=== PATIENT | female | born 1985 | race African-American/Black ===

== ENCOUNTER 2022-04-19 08:52 | Emergency (ER) | payer OTHER ==
[~2022-04-19] VITALS: Ht 160 cm; Wt 58.2 kg
[2022-04-19 11:45] LABS: BASO # 0.1 10^3/uL (0.0-0.2); BASO % 1.5 % (0.0-1.0); EOS # 0.1 10^3/uL (0.0-0.5); EOS % 3.3 % (0.0-3.0); HEMATOCRIT 32.4 % (36.0-47.0); HEMOGLOBIN 10.9 g/dl (12.0-15.5); LYMPH # 1.3 10^3/uL (1.5-5.0); MEAN CORPUSCULAR HEMOGLOBIN 28.7 pg (27.0-33.0); MEAN CORPUSCULAR HGB CONC 33.6 g/dl (32.0-36.5); MEAN CORPUSCULAR VOLUME 85.3 fl (80.0-96.0); MONO # 0.4 10^3/uL (0.0-0.8); MONO % 10.6 % (2.0-8.0); NEUTROPHILS # 1.5 10^3/uL (1.5-8.5); NEUTROPHILS % 46.6 % (36.0-66.0); PLATELET COUNT, AUTOMATED 169 10^3/uL (150-450); WHITE BLOOD COUNT 3.3 10^3/uL (4.0-10.0)
[2022-04-19] MEDS ORDERED: ACETAMINOPHEN TAB 650MG DOSE (2X325MG) PO ONE (12:10)
[2022-04-19 12:15] LABS: BLOOD UREA NITROGEN 11 MG/DL (9-23); CALCIUM LEVEL 8.7 MG/DL (8.5-10.1); CARBON DIOXIDE LEVEL 24 MMOL/L (20-31); CHLORIDE LEVEL 106 MMOL/L (98-107); CREATININE FOR GFR 0.73 MG/DL (0.55-1.30); GLOMERULAR FILTRATION RATE > 60.0 (>60); GLUCOSE, FASTING 81 MG/DL (60-100); POTASSIUM SERUM 4.6 MMOL/L (3.5-5.1); SODIUM LEVEL 136 MMOL/L (136-145)
[2022-04-19 12:22] LABS: RSV AMPLIFICATION NEGATIVE (NEGATIVE)
[2022-04-19] MEDS ORDERED: NS 1,000 ML IV ONE (13:00)
[2022-04-19 13:03] LABS: ALBUMIN 4.1 G/DL (3.2-5.2); ALKALINE PHOSPHATASE 59 U/L (46-116); ALT/SGPT 12 U/L (7.0-40); AST/SGOT 48 U/L (<34); BILIRUBIN,DIRECT 0.2 MG/DL (<0.4); BILIRUBIN,TOTAL 1.2 MG/DL (0.3-1.2); TOTAL PROTEIN 7.8 G/DL (5.7-8.2)
[2022-04-19 14:35] VITALS: BP 140/95
== END 2022-04-19 14:35 | disposition home or self-care (01) ==
LOC: M ED 08:52
DX: R42 Dizziness and giddiness (principal); D64.9 Anemia, unspecified; E86.0 Dehydration; R51.9 Headache, unspecified; D57.3 Sickle-cell trait

== ENCOUNTER → 2022-09-21 | Outpatient (CLI) | payer OTHER ==
[~2022-09-21] MED LIST: HYDR-3363; MELA3TAB30; MUCI600T31 PO; SUMA25TA3
[2022-09-21 14:27] LABS: BASO % 1.2 % (0.0-1.0); EOS # 0.1 10^3/uL (0.0-0.5); EOS % 2.3 % (0.0-3.0); HEMATOCRIT 31.9 % (36.0-47.0); LYMPH # 1.5 10^3/uL (1.5-5.0); LYMPH % 42.1 % (24.0-44.0); MEAN CORPUSCULAR HEMOGLOBIN 29.6 pg (27.0-33.0); MEAN CORPUSCULAR HGB CONC 34.5 g/dl (32.0-36.5); MEAN CORPUSCULAR VOLUME 85.8 fl (80.0-96.0); MONO # 0.3 10^3/uL (0.0-0.8); MONO % 9.2 % (2.0-8.0); NEUTROPHILS # 1.6 10^3/uL (1.5-8.5); NEUTROPHILS % 44.9 % (36.0-66.0); PLATELET COUNT, AUTOMATED 190 10^3/uL (150-450); RED BLOOD COUNT 3.72 10^6/uL (4.00-5.40); WHITE BLOOD COUNT 3.5 10^3/uL (4.0-10.0)
[2022-09-21 15:06] LABS: ALBUMIN 4.1 G/DL (3.2-5.2); ALKALINE PHOSPHATASE 78 U/L (46-116); ALT/SGPT 20 U/L (7.0-40); AST/SGOT 18 U/L (<34); BILIRUBIN,TOTAL 0.6 MG/DL (0.3-1.2); BLOOD UREA NITROGEN 13 MG/DL (9-23); CALCIUM LEVEL 9.8 MG/DL (8.5-10.1); CARBON DIOXIDE LEVEL 26 MMOL/L (20-31); CHLORIDE LEVEL 106 MMOL/L (98-107); CREATININE FOR GFR 0.67 MG/DL (0.55-1.30); GLOMERULAR FILTRATION RATE > 60.0 (>60); GLUCOSE, FASTING 78 MG/DL (60-100); POTASSIUM SERUM 3.7 MMOL/L (3.5-5.1); RHEUMATOID FACTOR QUANT < 3.5 IU/ML (<14); SODIUM LEVEL 140 MMOL/L (136-145); TOTAL PROTEIN 7.2 G/DL (5.7-8.2)
[2022-09-21 15:08] LABS: TOTAL 25(OH) VITAMIN D 15.6 NG/ML (20.0-100.0)
[2022-09-21 15:09] LABS: ERYTHROCYTE SEDIMENTATION RATE 4 mm/hr (0-20); THYROID STIMULATING HORMONE 1.168 uIU/ML (0.55-4.78)
[2022-09-23 13:09] LABS: ANTINUCLEAR ANTIBODIES DIRECT Negative (Negative)
== END ==
LOC: M LAB 13:30
PROVIDERS: ATTEND Psychiatry & Neurology Neurology
DX: R51.9 Headache, unspecified (principal)

== ENCOUNTER → 2024-07-17 | Outpatient (CLI) | payer OTHER ==
[~2024-07-17] MED LIST changes: +BACT800T5 PO; +DIALTAB PO; +GERITAB9 PO; +RIZA5TAB52; +THERTAB52 PO; +TRAN650T; +ZONI25CA13
== END ==
LOC: M WHC 07:33
PROVIDERS: ATTEND Physician Assistant
DX: Z12.31 Encounter for screening mammogram for malignant neoplasm of breast (principal); R92.333 Mammographic heterogeneous density, bilateral breasts

== ENCOUNTER → 2024-12-10 | Outpatient (CLI) | payer OTHER ==
[~2024-12-10] MED LIST changes: +MULT18TA PO; -TRAN650T; +TRAN650T PO
[2024-12-10 14:49] LABS: BASO # 0.1 10^3/uL (0.0-0.2); BASO % 1.7 % (0.0-1.0); EOS # 0.2 10^3/uL (0.0-0.5); EOS % 4.1 % (0.0-3.0); LYMPH # 1.6 10^3/uL (1.5-5.0); LYMPH % 37.8 % (24.0-44.0); MONO # 0.3 10^3/uL (0.0-0.8); MONO % 7.8 % (2.0-8.0); NEUTROPHILS # 2.0 10^3/uL (1.5-8.5); NEUTROPHILS % 48.4 % (36.0-66.0); PLATELET COUNT, AUTOMATED 223 10^3/uL (150-450)
== END ==
LOC: M LAB 14:20
PROVIDERS: ATTEND Otolaryngology
DX: J35.01 Chronic tonsillitis (principal)

== ENCOUNTER 2024-12-15 08:57 | Day surgery (SDC) | payer OTHER ==
[~2024-12-15] VITALS: Ht 160 cm; Wt 62.7 kg
[2024-12-15] MEDS ORDERED: LR 1,000 ML IV SCH ×2 (09:05→10:50)
[2024-12-15] MEDS ORDERED: MIDAZOLAM INJ 2 MG/2 ML VIAL As Ordered ONE (09:44)
[2024-12-15] MEDS ORDERED: ROCURONIUM BROMIDE 50MG/5ML VIAL As Ordered ONE (09:44)
[2024-12-15] MEDS ORDERED: LIDOCAINE 2% 100 MG/5 ML SDV (FOR ANES.) As Ordered ONE (09:44)
[2024-12-15] MEDS ORDERED: dexAMETHasone 4 MG/ML 1 ML VIAL As Ordered ONE (10:09)
[2024-12-15] MEDS ORDERED: ACETAMINOPHEN 1000MG/100ML IV BAG As Ordered ONE (10:18)
[2024-12-15] MEDS ORDERED: SUGAMMADEX SODIUM 500 MG/5 ML VIAL As Ordered ONE (10:22)
[2024-12-15] MEDS ORDERED: ONDANSETRON 4MG 2ML VIAL As Ordered ONE (10:22)
[2024-12-15] MEDS ORDERED: HYDROMORPHONE HCL 0.5 MG/0.5 ML SYRINGE IV PRN (10:50)
[2024-12-15] MEDS: ONDANSETRON 4MG 2ML VIAL IV PRN (11:14)
[2024-12-15 11:55] VITALS: BP 139/89; TEMP 97.3; O2SAT 100
== END 2024-12-15 12:38 | disposition home or self-care (01) ==
LOC: M SDC 08:57
PROVIDERS: ATTEND Otolaryngology
DX: J35.01 Chronic tonsillitis (principal); R19.6 Halitosis; E73.9 Lactose intolerance, unspecified
CPT/HCPCS: 42826; 81025; 88302; J0131; J0665; J1100; J2250; J2405; J3010

== ENCOUNTER 2025-01-13 08:39 | Day surgery (SDC) | payer OTHER ==
[~2025-01-13] VITALS: Ht 160 cm; Wt 64.4 kg
[~2025-01-13 08:39] MED LIST changes: +KETOROLAC 30 MG/ML 1 ML VIAL As Ordered ONE; +LIDOCAINE 2% 100 MG/5 ML SDV (FOR ANES.) As Ordered ONE; +ONDANSETRON 4MG/2ML VIAL As Ordered ONE; +dexAMETHasone 4 MG/ML 1 ML VIAL As Ordered ONE
[2025-01-13] MEDS ORDERED: MIDAZOLAM INJ 2 MG/2 ML VIAL As Ordered ONE (08:50)
[2025-01-13] MEDS ORDERED: SCOPOLAMINE 1MG TRANSDERMAL PATCH TOP ONE (09:10)
[2025-01-13] MEDS: ACETAMINOPHEN 500 MG TAB PO ONE (09:18)
[2025-01-13] MEDS: SCOPOLAMINE 1MG TRANSDERMAL PATCH TOP ONE (09:19)
[2025-01-13 09:32] LABS: PLATELET COUNT, AUTOMATED 217 10^3/uL (150-450)
[2025-01-13] MEDS ORDERED: ROCURONIUM BROMIDE 50MG/5ML VIAL As Ordered ONE (10:06)
[2025-01-13] MEDS ORDERED: SUGAMMADEX SODIUM 500 MG/5 ML VIAL As Ordered ONE (12:41)
[2025-01-13] MEDS: LIDOCAINE 1% SDV 30 ML VIAL As Ordered ONE (13:00)
[2025-01-13] MEDS: SILVER NITRATE APPLICATOR (1 = QTY 10) As Ordered ONE (13:00)
[2025-01-13] MEDS: FAMOTIDINE 20 MG/2 ML VIAL IVP ONE (13:08)
[2025-01-13] MEDS ORDERED: MORPHINE 4 MG/ML 1 ML VIAL IV PRN (13:10)
[2025-01-13] MEDS ORDERED: HYDROMORPHONE HCL 0.5 MG/0.5 ML SYRINGE IV PRN (13:10)
[2025-01-13 14:32] VITALS: BP 129/78; TEMP 97.7; O2SAT 100
== END 2025-01-13 14:42 | disposition home or self-care (01) ==
LOC: M SDC 08:39
PROVIDERS: ATTEND General Practice
DX: N85.00 Endometrial hyperplasia, unspecified (principal); D25.0 Submucous leiomyoma of uterus; E73.9 Lactose intolerance, unspecified; Z79.899 Other long term (current) drug therapy
CPT/HCPCS: 36415; 58558; 81025; 85027; 86850; 86900; 86901; 88305; J1100; J1885; J2250; J2405; J3010